=== PATIENT | female | born 1945 | race Caucasian/White ===

== ENCOUNTER 2018-06-12 07:08 | Day surgery (SDC) | payer MEDICARE, BC ==
[~2018-06-12 07:08] MED LIST: CEFAZOLIN 2 Gram 2 GM/50 ML BAG IVPB ONE; CELECOXIB 100 MG CAPSULE PO ONE; FAMOTIDINE 20MG TABLET PO ONE; MECLIZINE 25 MG TABLET PO ONE; METOCLOPRAMIDE 10 MG TABLET PO ONE
[2018-06-12] MEDS ORDERED: TRANEXAMIC ACID 1,000 MG/10 ML ML IV ONE (07:09)
[2018-06-12] MEDS ORDERED: DEXAMETHASONE 4 MG/ML 1ML VIAL IVP ONE (07:09)
[2018-06-12] MEDS ORDERED: ROPIVACAINE HCL (NAROPIN) /PF 5MG/ML 20ML VIAL IV ONE (07:09)
[2018-06-12] MEDS ORDERED: MIDAZOLAM HCL 2MG/2ML VIAL IV ONE (07:09)
[2018-06-12] MEDS ORDERED: LIDOCAINE 2% MDV (20MG/ML) 20ML VIAL IV ONE (07:09)
[2018-06-12] MEDS ORDERED: PROPOFOL 10 MG/ML VIAL IV ONE (07:09)
[2018-06-12] MEDS ORDERED: PNEUM 13-VAL/PF 0.5 ML IM ONE (11:24)
[2018-06-12] MEDS ORDERED: DIPHENHYDRAMINE HCL 25 MG CAPSULE PO PRN (11:30)
[2018-06-12] MEDS ORDERED: OXYCODONE HCL/APAP 5MG/325MG TABLET PO PRN ×2 (11:30)
[2018-06-12] MEDS ORDERED: SENNOSIDES/DOCUSATE SODIUM UD CAPSULE PO PRN (11:30)
[2018-06-12] MEDS ORDERED: AL HYDROX/MAG HYDROX 30ML UD PO PRN (11:30)
[2018-06-12] MEDS ORDERED: ONDANSETRON HCL IV 4 MG/2 ML VIAL IVP PRN (11:30)
[2018-06-12] MEDS ORDERED: MAGNESIUM HYDROXIDE 30 ML UDC PO PRN (11:30)
[2018-06-12] MEDS ORDERED: HYDROMORPHONE HCL 2 MG/ML VIAL IV PRN (11:30)
[2018-06-12] MEDS ORDERED: TRAMADOL HCL 50 MG TABLET PO PRN ×2 (11:30)
[2018-06-12] MEDS ORDERED: METOCLOPRAMIDE HCL 10 MG/2 ML VIAL IVP PRN (11:30)
[2018-06-12] MEDS ORDERED: NALOXONE 0.4 MG/1 ML VIAL IVP PRN (11:30)
[2018-06-12] MEDS ORDERED: ACETAMINOPHEN 325 MG TAB PO PRN (11:30)
[2018-06-12] MEDS ORDERED: ZOLPIDEM TARTRATE 5 MG TABLET PO PRN (11:30)
[2018-06-12] MEDS ORDERED: HYDROCODONE/APAP 5/325MG TABLET PO PRN (11:30)
[2018-06-12] MEDS ORDERED: TRANEXAMIC ACID 1,000 MG in 0.9 % SODIUM CHLORIDE 100ML 100 ML IVPB ONE (13:08)
[2018-06-12] MEDS: PANTOPRAZOLE SODIUM 40 MG TABLET PO SCH (14:05)
[2018-06-12] MEDS: GABAPENTIN 300 MG CAPSULE PO SCH ×2 (14:05→21:59)
[2018-06-12] MEDS: LEVOTHYROXINE SODIUM 125 MCG TABLET PO SCH (14:05)
--- NOTE | 2018-06-12 14:06 | Rehab Evaluation ---
Patient Information - Patient Information Diagnosis: OA right knee Ordered Treatment: OT Evaluate and Treat Status: Initial Evaluation Surgery: Yes (right TKA) Date of Surgery: 06/12/18 Past Medical/Surgical Hx: PAST MEDICAL/SURGICAL HISTORY Past Surgical History EGD toe sx hernia repair hyst ORIF ankle right tubal ligation left shoulder scope PMH - Respiratory Hx Respiratory Disorders No PMH - Cardiovascular Hx Cardiovascular Disorders Yes Exercise Tolerance Good Comment: hyperlipidemia PMH - Neuro Hx Neurological Disorders No PMH - GI Hx Gastrointestinal Disorders Yes Hx Gastroesophageal Reflux Yes: on prilosec Comment: esophagous recently stretched PMH - Hx Genitourinary Disorders No PMH - Endocrine Hx Endocrine Disorders Yes Hx Thyroid Disease Yes: on meds PMH - Musculoskeletal Hx Musculoskeletal Disorders Yes Hx Arthritis Yes PMH - Psych Hx Psychiatric Problems No PMH - Hematology/Oncology Hx Hematology/Oncology Yes Disorders Hx Cancer Yes: melenoma leg 1978 Hx Chemotherapy No Hx Radiation Therapy No Comment: amnio therapy for melenoma Premorbid Status: Detail (Pt lives with spouse in a 2 story house, she will be staying on the main floor. She has 1 step, no railing at the entrance. She has a walk in shower, no grab bars or seat and a standard height toilet, no grab bar. She has a standard walker and cane. Pt is typically responsible for home mgmt, meal prep and laundry.) Precautions: [place], Fall, Other (WBAT right LE) - Time With Patient Total Time Spent With Patient (Min): 45 Treatment Procedures: Detail (OT eval low complexity) Subjective Information - Subjective Information Per Patient Objective Data - Pain Pain Present: Yes (1-2/10 at rest, 4-5/10 after activity) - Mental Status Patient Orientation: Oriented x3 - Visual Perception Appears within normal limits for therapeutic activities - ROM Within normal limits (Bi UE AROM WNL) - Strength/Tone Within normal limits (Jg UE strength WNL) - Coordination Appears within normal limits for therapeutic activities - Transfers Independent (Ind with sit to stand from recliner chair height) - Balance Balance Sitting: Good Balance Standing: Good - Sensation Intact - ADL's/IADL's Detail (Pt educated and able to demonstrate Ind with modified LE dressing including doffing slipper socks, donning underwear, pants and slip on shoes although spouse assisted with pulling heel of right shoe on. Reviewed kitchen and shower safety and modification, pt verbalized learning.) Therapy Assessment - Therapy Assessment Detail (Pt is Ind with modified LE dressing techniques.) Problem List - Problem List Occupational Therapy Problem List: Detail (No current IP OT problems identified. ) Goals - Goals Occupational Therapy Goals: No current IP OT goals identified. Prognosis - Prognosis Good Plan - Plan Occupational Therapy Plan: No further IP OT recommended at this time. Thank you for this referral.
--- NOTE | 2018-06-12 14:32 | Rehab Evaluation ---
Patient Information - Patient Information Diagnosis: OA right knee Ordered Treatment: PT Evaluate and Treat Status: Initial Evaluation Surgery: Yes (right TKA) Date of Surgery: 06/12/18 Past Medical/Surgical Hx: PAST MEDICAL/SURGICAL HISTORY Past Surgical History EGD toe sx hernia repair hyst ORIF ankle right tubal ligation left shoulder scope PMH - Respiratory Hx Respiratory Disorders No PMH - Cardiovascular Hx Cardiovascular Disorders Yes Exercise Tolerance Good Comment: hyperlipidemia PMH - Neuro Hx Neurological Disorders No PMH - GI Hx Gastrointestinal Disorders Yes Hx Gastroesophageal Reflux Yes: on prilosec Comment: esophagous recently stretched PMH - Hx Genitourinary Disorders No PMH - Endocrine Hx Endocrine Disorders Yes Hx Thyroid Disease Yes: on meds PMH - Musculoskeletal Hx Musculoskeletal Disorders Yes Hx Arthritis Yes PMH - Psych Hx Psychiatric Problems No PMH - Hematology/Oncology Hx Hematology/Oncology Yes Disorders Hx Cancer Yes: melenoma leg 1978 Hx Chemotherapy No Hx Radiation Therapy No Comment: amnio therapy for melenoma Premorbid Status: Detail (Pt lives with spouse in a 2 story house, she will be staying on the main floor. She has 1 step, no railing at the entrance. She has a walk in shower, no grab bars or seat and a standard height toilet, no grab bar. She has a standard walker and cane. Pt is typically responsible for home mgmt, meal prep and laundry.) Precautions: [place], Fall, Other (WBAT right LE) - Time With Patient Total Time Spent With Patient (Min): 30 Treatment Procedures: Detail (Initial Evaluation, gait training) Subjective Information - Subjective Information Per Patient (The patient had complaints of nausea when standing. The patient did not initially complain of knee pain.) Objective Data - Mental Status Patient Orientation: Oriented x3 - Visual Perception Appears within normal limits for therapeutic activities - ROM Not within normal limits (The patient's R knee AROM was limited as to be expected s/p surgery. All other LE AROM is WNL.) - Strength/Tone Not within normal limits (The patient's R LE strength was not tested s/p surgery however was functional ( ie: the patient was able to lift LE in and out of bed. The patient's L LE strength was WNL.) - Bed Mobility Independent (The patient was independent with supine to and from sit transfer.) - Transfers Independent (The patient was independent with sit to and from stand transfer and required supervision for safety with toilet transfer. The patient became nauseated when standing and vomitted.) - Balance Balance Sitting: Good Balance Standing: Fair (The patient requires walker for support when standing. The patient had one episode of LOB with PT assist to recover with first step.) - Gait Detail (The patient ambulated to and from bathroom with CG for safety WBAT on R LE ( a distance of 13 feet x 2).) Therapy Assessment - Therapy Assessment Detail (The patient was independent with bed mobility and demonstrated unsteadiness with transfers and ambulation at times, however, feel the patient will progress well with mobility.) Problem List - Problem List Physical Therapy Problem List: Detail (Decreased R knee AROM and decreased R LE strength as to be expected following surgery.) Goals - Goals Physical Therapy Goals: 1) The patient will ambulate with appropriate assistive device community distances independently WBAT on the R LE. 2) The patient will ambulate on stairs using proper technique with supervision for safety. 3) The patient will be independent with Home TKA exercise program. Prognosis - Prognosis Good Plan - Plan Physical Therapy Plan: PT 1-2 times a day for gait training on levels and stairs and instruction in TKA HEP.
[2018-06-12] MEDS ORDERED: RINGERS SOLUTION,LACTATED 1,000 ML IV PRN (15:15)
[2018-06-12] MEDS: CEFAZOLIN 2 Gram 2 GM/50 ML BAG IVPB SCH (17:30)
[2018-06-12] MEDS: CALCIUM CARBONATE 500 MG TAB.CHEW PO SCH ×2 (19:07→21:58)
[2018-06-12] MEDS: HYDROCODONE/APAP 5/325MG TABLET PO PRN (19:07)
[2018-06-12] MEDS: ASPIRIN 325 MG TAB ENTERIC-COATED PO SCH (21:59)
[2018-06-12] MEDS ORDERED: SIMVASTATIN 20 MG TABLET PO SCH (22:00)
[2018-06-12] MEDS: RINGERS SOLUTION,LACTATED 1,000 ML IV SCH (22:00)
[2018-06-13] MEDS: CEFAZOLIN 2 Gram 2 GM/50 ML BAG IVPB SCH ×2 (02:09→08:13)
[2018-06-13] MEDS: HYDROCODONE/APAP 5/325MG TABLET PO PRN ×3 (04:06→14:32)
[2018-06-13] MEDS: RINGERS SOLUTION,LACTATED 1,000 ML IV SCH (05:20)
[2018-06-13] MEDS: LEVOTHYROXINE SODIUM 125 MCG TABLET PO SCH (06:32)
[2018-06-13] MEDS: PANTOPRAZOLE SODIUM 40 MG TABLET PO SCH (06:32)
--- NOTE | 2018-06-13 08:30 | Operative Note ---
DATE OF SURGERY: 06/12/2018 Surgeon: Carlos Alberto Nation DO PREOPERATIVE DIAGNOSIS: Osteoarthritis of the right knee. POSTOPERATIVE DIAGNOSIS: Osteoarthritis of the right knee. OPERATION: Right total knee arthroplasty. DESCRIPTION OF PROCEDURE: This 73-year-old female was taken to the operating room and placed in the supine position on the operating room table. A spinal anesthetic was administered. The right lower extremity was elevated, prepped with Hibiclens, and draped in the usual sterile fashion. It was exsanguinated and the tourniquet inflated to 300 mmHg. All scrub personnel wore personal isolation suits. An anterior longitudinal midline incision was made followed by a medial parapatellar arthrotomy incision. Distal femoral cutting block was affixed to make a 10 mm distal femoral cut because of the slight flexion contracture. A 5-degree valgus cut was made. The 4-in-1 cutting block was then pinned in 3 degrees of external rotation after the appropriate size had been determined, and the cuts were made and the wafers of bone were removed. We then directed our attention to the proximal tibia, and an extramedullary alignment guide was used to cut the proximal tibia referencing a 10 mm cut off the lateral tibial plateau. The appropriate cut was made and the wafer of bone was removed. Remnants of the menisci and osteophytes were removed from the posterior aspect of the knee. The tibia was sized to a size 75 and the stem punch was used. The patella was cut and restored to anatomic height with a 37 x 8.6 mm patella. The knee was taken through range of motion and excellent stability of the components were identified. After trial components had been tested, they were removed and the wound copiously irrigated with pulse lavage lactated Ringer's solution. All the bony surfaces were dried and excess cement removed after the insertion of each component. Initially a size 75 tibial baseplate was cemented into place followed by the insertion of the 11 mm tibial bearing followed by the insertion of the 67.5 cruciate retaining femoral component, and finally the 37 x 8.6 patella was used. Once the cement had hardened, the knee was again taken through range of motion and found to be stable. The wound was copiously irrigated with lactated Ringer's solution and a drain placed through a separate stab incision. The arthrotomy incision was closed with a #2 Vicryl. The subcutaneous tissue was closed with 0 Vicryl and the skin was stapled. Sterile dressings applied with a Polar Care. The patient was taken to the recovery room in satisfactory condition. GROSS PATHOLOGY: This patient demonstrated very severe osteoarthritis at the patellofemoral joint with bone loss on the patella. There was also full-thickness articular cartilage loss noted on the lateral femoral condyle and grade 3 changes noted on the medial femoral condyle. Final components inserted were a [employer] size 67.5 cruciate retaining femur, a 75 tibial baseplate, an 11 mm anterior stabilized E1 bearing, and a 37 x 8.6 mm patella was used. CC: MD GARRET Taveras
[2018-06-13] MEDS ORDERED: CELECOXIB 100 MG CAPSULE PO SCH (10:00)
[2018-06-13] MEDS: ASPIRIN 325 MG TAB ENTERIC-COATED PO SCH (10:19)
[2018-06-13] MEDS: GABAPENTIN 300 MG CAPSULE PO SCH (10:21)
[2018-06-13] MEDS: CALCIUM CARBONATE 500 MG TAB.CHEW PO SCH (10:22)
--- NOTE | 2018-06-13 11:16 | Physical Therapy Tx Note ---
Physical Therapy Tx Note - Treatment Note Tolerated: Fair Total Time Spent With Patient: 30 Physical Therapy Tx Note: Detail (The patient was up in a chair when PT arrived. The patient was independent with sit to stand, however she had difficulty sliding R LE forward when and often screamed in pain. The patient ambulated with standard walker a distance of 80 feet x 1 WBAT on the R LE independently. The patient ambulated on 3 stairs with present with use of folded walker and one railing, using proper technique and verbal cues not to hold her breath. The patient's stated he felt comfortable guarding patient on stairs since she has only one small step at home. The patient completed TKA HEP including: heel slides, hamstring sets, quad sets, gluteal sets, ankle pumps and SLR. Patient was unable to complete SLR. Patient was instructed in how to use a strap to complete a SLR. The patient has met all inpatient PT goals and is discharged from from inpatient PT.) Physical Therapy Problem List: Detail (Decreased R knee AROM and decreased R LE strength as to be expected following surgery.) Physical Therapy Goals: (1) The patient will ambulate with appropriate assistive device community distances independently WBAT on the R LE.(Goal Met). 2) The patient will ambulate on stairs using proper technique with supervision for safety.(Goal Met). 3) The patient will be independent with Home TKA exercise program.(Goal met) Physical Therapy Plan: The patient has met all inpatient PT goals and is to continue with outpatient PT.
--- NOTE | 2018-06-14 08:50 | Discharge Summary ---
DATE OF ADMISSION: 06/12/2018 DATE OF DISCHARGE: 06/13/2018 ADMITTING DIAGNOSIS: Osteoarthritis of the right knee. DISCHARGE DIAGNOSIS: Osteoarthritis of the right knee. OPERATIVE PROCEDURE: Elective right total knee arthroplasty. DESCRIPTION: This 73-year-old female was admitted to the hospital for elective total knee arthroplasty and tolerated the operative procedure well. She progressed well and cleared physical therapy. She was not complaining of any chest pain, shortness of breath, or any evidence of DVT. The pain was controlled with [place]. She was given a prescription for [place] 5/325 one every 4 hours p.r.n. pain, and she was given 40. She will take aspirin 325 mg daily. She will wear her CRISTIN hose during the day and remove them at night. She will have outpatient physical therapy. Routine wound care instructions were given. She will follow up in the clinic in 2 weeks. Should there be any problems prior to being seen, she was instructed to call my office. GARRET
== END 2018-06-13 14:55 | disposition home or self-care (01) ==
LOC: SUR 07:08 → MEDSURG 10:43 → SUR 06-13 14:55
PROVIDERS: ATTEND Orthopaedic Surgery
DX: M17.11 Unilateral primary osteoarthritis, right knee (principal); E78.00 Pure hypercholesterolemia, unspecified; K21.9 Gastro-esophageal reflux disease without esophagitis
CPT/HCPCS: 76942; 97110; 97530; J7120